=== PATIENT | female | born 1930 | race African-American/Black ===

== ENCOUNTER 2016-11-06 12:41 | Inpatient (IN) | payer OTHER ==
[~2016-11-06] VITALS: Ht 152.4 cm; Wt 70.8 kg
--- NOTE | ~2016-11-06 | EKG ---
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 : 1930 Requested By: Lv Vicente Order Number: [id number] MD: Jordon Galvan Measurements Intervals [place] Rate: 72 P: 40 [place]: 199 QRS: -15 QRSD: 98 T: 35 QT: 438 QTc: 480 Interpretive Statements Sinus rhythm LVH with secondary repolarization abnormality Baseline wander in lead(s) V1 Compared to ECG 10/28/2015 09:11:39 No significant change was found Electronically Signed On 11-07-2016 9:00:46 CDT by Jordon Galvan [email or web address] <ELECTRONICALLY SIGNED> By: Jordon Galvan MD, [facility] 11/07/16 0900 1323 1323 Jordon Galvan MD, [facility] /EPI
[~2016-11-06 12:41] MED LIST: ADULT LOW DOSE81 MG PO; AMBEREN; ARIMIDEX1 MG PO; CARVEDILOL6.25 MG PO; CLONAZEPAM0.5 MG PO; ECHINACEA HERB380 MG PO; FISH OIL 1,0001 EAC5 PO; FLOVENT DISKU100 MCG IH; HYDROCHLOROTHIA25 M2 PO; HYDROCODONE-AP1 EAC6 PO; HYDROXYZINE HCL25 M1 PO; K-TAB10 MEQ PO; KAPVAY0.1 MG PO; KLOR-CON 1010 MEQ PO; LASIX 40 MG TAB40 M1 PO; LIDODERM TP; MIRALAX17 GM PO; PAXIL40 MG PO; POTASSIUM PO; PROVENTIL; SIMVASTATIN40 MG PO; STOOL SOFTENER1 EAC2 PO; TYLENOL EX-STR500 M2 PO; VITAMIN D1000 UNI1 PO; VITCB500GO PO; WELLBUTRIN SR150 MG PO
[2016-11-06 12:45] VITALS: BP 178/76
[2016-11-06] MEDS ORDERED: TRAZODONE HCL50 MG PO (12:55)
[2016-11-06 13:23] LABS: ABSOLUTE NEUTROPHILS 2.4 thou/uL (1.4-8.2); BASOPHILS 0.5 % (0.0-2.0); EOSINOPHILS 3.9 % (0.0-3.0); HEMATOCRIT 34.7 % (37.0-47.0); HEMOGLOBIN 11.8 gm/dL (12.0-15.0); LYMPHOCYTES 17.7 % (24.0-44.0); MCH 28.2 pg (26.0-34.0); MONOCYTES 11.1 % (1.0-8.0); PLATELET COUNT 143 thou/uL (150-400); POLYS 66.8 % (36.0-66.0); RBC 4.18 mil/uL (4.20-5.00); RDW 15.2 % (10.5-14.5); WBC 3.6 thou/uL (4.0-11.0)
[2016-11-06 13:26] LABS: MANUAL DIFF NO
[2016-11-06 13:31] LABS: ANION GAP 7 mmol/L (7-16); BUN 16 mg/dL (7-18); CALCIUM 8.9 mg/dL (8.5-10.1); CHLORIDE 102 mmol/L (98-107); CO2 32 mmol/L (21-32); CREATININE 0.7 mg/dL (0.6-1.0); GLUCOSE 97 mg/dL (74-106); SODIUM 141 mmol/L (136-145)
[2016-11-06 13:38] LABS: POTASSIUM 2.4 mmol/L (3.5-5.1)
[2016-11-06 13:42] LABS: TROPONIN-I < 0.04 ng/mL (<0.04-0.07)
[2016-11-06 15:16] VITALS: BP 110/69
[2016-11-06 15:54] LABS: URINE BILIRUBIN NEGATIVE (Negative); URINE BLOOD NEGATIVE (Negative); URINE COLOR YELLOW; URINE GLUCOSE-RANDOM* NEGATIVE (Negative); URINE KETONES NEGATIVE (Negative); URINE NITRITE NEGATIVE (Negative); URINE PROTEIN (DIPSTICK) NEGATIVE (Negative); URINE UROBILINOGEN 0.2 E.U./dl (0.2-1.0)
[2016-11-06 16:15] VITALS: BP 120/54
[2016-11-06 17:25] VITALS: BP 192/89
[2016-11-06 19:20] VITALS: BP 159/69
[2016-11-07 04:05] VITALS: BP 135/62
[2016-11-07 06:27] LABS: CREATININE 0.7 mg/dL (0.6-1.0); PHOSPHORUS 3.1 mg/dL (2.5-4.9); POTASSIUM 3.2 mmol/L (3.5-5.1)
[2016-11-07 08:22] VITALS: BP 151/61
[2016-11-07] MEDS ORDERED: MAXZIDE-25 MG1 EACH PO (09:39)
[2016-11-07] MEDS ORDERED: MACROBID 100 M100 MG PO (09:49)
[2016-11-07 11:05] VITALS: BP 151/61
== END 2016-11-07 11:18 | disposition home or self-care (01) | DRG 641 ==
LOC: ER 12:41 → 4N 14:01 → EROBS 14:01 → 4N 16:18
PROVIDERS: Emergency Medicine; Hospitalist; Physician Assistant
DX: E87.6 Hypokalemia (principal); D61.818 Other pancytopenia; I10 Essential (primary) hypertension; E78.5 Hyperlipidemia, unspecified; F31.9 Bipolar disorder, unspecified; G47.9 Sleep disorder, unspecified; Z86.73 Personal history of transient ischemic attack (TIA), and cerebral infarction without residual deficits; Z88.1 Allergy status to other antibiotic agents; Z88.0 Allergy status to penicillin; Z88.6 Allergy status to analgesic agent; Z88.8 Allergy status to other drugs, medicaments and biological substances; Z79.899 Other long term (current) drug therapy
CPT/HCPCS: 10790

== ENCOUNTER 2016-11-08 06:11 | Emergency (ER) | payer OTHER ==
[~2016-11-08] VITALS: Ht 160 cm; Wt 71.7 kg
--- NOTE | ~2016-11-08 | EKG ---
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 : 1930 Requested By: Yohannes Lord Order Number: [id number] MD: Jordon Galvan Measurements Intervals [place] Rate: 75 P: -5 ND: 172 QRS: -15 QRSD: 93 T: 27 QT: 390 QTc: 436 Interpretive Statements Sinus rhythm Abnormal R-wave progression, early transition Left ventricular hypertrophy Compared to ECG 11/06/2016 13:23:17 No change was found Electronically Signed On 11-08-2016 8:11:40 CDT by Jordon Galvan [email or web address] <ELECTRONICALLY SIGNED> By: Jordon Galvan MD, [facility] 11/08/16 0811 0637 06 Jordon Galvan MD, [facility] /EPI
[~2016-11-08 06:11] MED LIST changes: +MACROBID 100 M100 MG PO; +MAXZIDE-25 MG1 EACH PO; +TRAZODONE HCL50 MG PO
[2016-11-08 06:12] VITALS: BP 190/116
[2016-11-08 06:34] LABS: ABSOLUTE NEUTROPHILS 3.5 thou/uL (1.4-8.2); BASOPHILS 0.7 % (0.0-2.0); EOSINOPHILS 2.8 % (0.0-3.0); HEMATOCRIT 36.1 % (37.0-47.0); HEMOGLOBIN 12.1 gm/dL (12.0-15.0); LYMPHOCYTES 14.6 % (24.0-44.0); MCH 28.2 pg (26.0-34.0); MCHC 33.6 g/dL (28.0-37.0); MCV 83.7 fL (80.0-100.0); MONOCYTES 11.3 % (1.0-8.0); PLATELET COUNT 143 thou/uL (150-400); POLYS 70.6 % (36.0-66.0); RBC 4.31 mil/uL (4.20-5.00); RDW 15.6 % (10.5-14.5); WBC 4.9 thou/uL (4.0-11.0)
[2016-11-08 06:35] LABS: MANUAL DIFF NO
[2016-11-08 06:43] LABS: ANION GAP 10 mmol/L (7-16); BUN 13 mg/dL (7-18); CALCIUM 9.3 mg/dL (8.5-10.1); CHLORIDE 103 mmol/L (98-107); CO2 27 mmol/L (21-32); CREATININE 0.8 mg/dL (0.6-1.0); GLUCOSE 109 mg/dL (74-106); POTASSIUM 3.4 mmol/L (3.5-5.1); SODIUM 140 mmol/L (136-145)
[2016-11-08 06:48] LABS: ALBUMIN 3.3 g/dL (3.4-5.0); ALKALINE PHOSPHATASE 101 U/L (46-116); DIRECT BILIRUBIN < 0.1 mg/dL (<0.1-0.3); SGOT 32 U/L (15-37); SGPT 29 U/L (30-65); TOTAL BILIRUBIN 0.5 mg/dL (<0.1-1.0); TOTAL PROTEIN 7.2 g/dL (6.4-8.2)
[2016-11-08 07:59] LABS: URINE BILIRUBIN NEGATIVE (Negative); URINE BLOOD NEGATIVE (Negative); URINE COLOR YELLOW; URINE GLUCOSE-RANDOM* NEGATIVE (Negative); URINE KETONES NEGATIVE (Negative); URINE LEUKOCYTES-REFLEX NEGATIVE (Negative); URINE PROTEIN (DIPSTICK) NEGATIVE (Negative); URINE UROBILINOGEN 0.2 E.U./dl (0.2-1.0)
[2016-11-08 08:34] VITALS: BP 148/73
[2016-11-08 10:46] VITALS: BP 149/80
== END 2016-11-08 09:00 | disposition home or self-care (01) ==
LOC: ER 06:11 → EROBS 08:11
PROVIDERS: Emergency Medicine
DX: R53.1 Weakness (principal); R74.8 Abnormal levels of other serum enzymes; I10 Essential (primary) hypertension; E78.00 Pure hypercholesterolemia, unspecified; F31.9 Bipolar disorder, unspecified; Z88.8 Allergy status to other drugs, medicaments and biological substances; Z86.73 Personal history of transient ischemic attack (TIA), and cerebral infarction without residual deficits; Z88.6 Allergy status to analgesic agent; Z88.1 Allergy status to other antibiotic agents; Z88.0 Allergy status to penicillin

== ENCOUNTER 2016-11-20 04:25 | Emergency (ER) | payer OTHER ==
[~2016-11-20] VITALS: Ht 152.4 cm; Wt 69.4 kg
[2016-11-20 04:26] VITALS: BP 134/77
[2016-11-20 04:51] LABS: ABSOLUTE NEUTROPHILS 2.6 thou/uL (1.4-8.2); BASOPHILS 1.1 % (0.0-2.0); EOSINOPHILS 5.1 % (0.0-3.0); HEMATOCRIT 35.3 % (37.0-47.0); HEMOGLOBIN 11.8 gm/dL (12.0-15.0); LYMPHOCYTES 22.6 % (24.0-44.0); MCH 27.8 pg (26.0-34.0); MCHC 33.5 g/dL (28.0-37.0); MCV 82.8 fL (80.0-100.0); MONOCYTES 9.2 % (1.0-8.0); PLATELET COUNT 168 thou/uL (150-400); RBC 4.26 mil/uL (4.20-5.00); RDW 14.7 % (10.5-14.5); WBC 4.3 thou/uL (4.0-11.0)
[2016-11-20 04:53] LABS: MANUAL DIFF NO
[2016-11-20 04:59] LABS: CALCIUM 9.3 mg/dL (8.5-10.1)
== END 2016-11-20 05:43 | disposition home or self-care (01) ==
LOC: ER 04:25
PROVIDERS: Emergency Medicine
DX: R25.2 Cramp and spasm (principal); I10 Essential (primary) hypertension; E78.00 Pure hypercholesterolemia, unspecified; F31.9 Bipolar disorder, unspecified; Z86.73 Personal history of transient ischemic attack (TIA), and cerebral infarction without residual deficits; Z91.030 Bee allergy status; Z88.6 Allergy status to analgesic agent; Z88.1 Allergy status to other antibiotic agents; Z88.0 Allergy status to penicillin; Z88.8 Allergy status to other drugs, medicaments and biological substances

== ENCOUNTER 2016-11-24 13:33 | Emergency (ER) | payer OTHER ==
[~2016-11-24] VITALS: Ht 152.4 cm; Wt 69.8 kg
--- NOTE | ~2016-11-24 | EKG ---
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: SHILPITAMMYSILVIO : 1930 Requested By: Miguel Nuñez Order Number: [id number] MD: Jordon Galvan Measurements Intervals [place] Rate: 75 P: 40 [place]: 181 QRS: -10 QRSD: 84 T: 28 QT: 382 QTc: 427 Interpretive Statements Sinus rhythm Abnormal R-wave progression, early transition Left ventricular hypertrophy Compared to ECG 11/08/2016 06:37:42 No significant changes Electronically Signed On 11-25-2016 13:48:05 CDT by Jordon Galvan [email or web address] <ELECTRONICALLY SIGNED> By: Jordon Galvan MD, [facility] 11/25/16 1348 1448 1448 Jordon Galvan MD, [facility] /EPI
[2016-11-24 15:06] LABS: HEMATOCRIT 33.7 % (37.0-47.0); HEMOGLOBIN 11.3 gm/dL (12.0-15.0); MCH 27.8 pg (26.0-34.0); MCHC 33.6 g/dL (28.0-37.0); MCV 82.9 fL (80.0-100.0); PLATELET COUNT 148 thou/uL (150-400); RBC 4.06 mil/uL (4.20-5.00); RDW 15.2 % (10.5-14.5); WBC 8.8 thou/uL (4.0-11.0)
[2016-11-24 15:07] LABS: MANUAL DIFF YES
[2016-11-24 15:21] LABS: ANION GAP 8 mmol/L (7-16); BUN 23 mg/dL (7-18); CALCIUM 9.7 mg/dL (8.5-10.1); CHLORIDE 104 mmol/L (98-107); CO2 24 mmol/L (21-32); CREATININE 1.2 mg/dL (0.6-1.0); GLUCOSE 97 mg/dL (74-106); POTASSIUM 4.3 mmol/L (3.5-5.1); SODIUM 136 mmol/L (136-145)
[2016-11-24 15:30] LABS: TROPONIN-I < 0.04 ng/mL (<0.04-0.07)
[2016-11-24 15:44] LABS: ABSOLUTE NEUTROPHILS 5.5 thou/uL (1.4-8.2); TOTAL CELL COUNT 100
[2016-11-24 16:44] VITALS: BP 126/94
== END 2016-11-24 16:46 | disposition home or self-care (01) ==
LOC: ER 13:33
PROVIDERS: Emergency Medicine
DX: R09.89 Other specified symptoms and signs involving the circulatory and respiratory systems (principal); I10 Essential (primary) hypertension; E78.00 Pure hypercholesterolemia, unspecified; F31.9 Bipolar disorder, unspecified; Z86.73 Personal history of transient ischemic attack (TIA), and cerebral infarction without residual deficits; Z88.1 Allergy status to other antibiotic agents; Z88.0 Allergy status to penicillin; Z88.6 Allergy status to analgesic agent; Z91.030 Bee allergy status; Z98.890 Other specified postprocedural states

== ENCOUNTER 2016-11-25 07:26 | Emergency (ER) | payer OTHER ==
[~2016-11-25] VITALS: Ht 152.4 cm; Wt 68.0 kg
--- NOTE | ~2016-11-25 | EKG ---
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
[2016-11-25 07:55] LABS: HEMATOCRIT 34.8 % (37.0-47.0); HEMOGLOBIN 11.7 gm/dL (12.0-15.0); MCHC 33.6 g/dL (28.0-37.0); MCV 83.4 fL (80.0-100.0); RBC 4.18 mil/uL (4.20-5.00); RDW 15.4 % (10.5-14.5); WBC 3.4 thou/uL (4.0-11.0)
[2016-11-25 08:04] LABS: CALCIUM 9.6 mg/dL (8.5-10.1); CREATININE 1.1 mg/dL (0.6-1.0); POTASSIUM 3.9 mmol/L (3.5-5.1)
[2016-11-25 09:41] LABS: URINE BILIRUBIN NEGATIVE (Negative); URINE BLOOD NEGATIVE (Negative); URINE COLOR YELLOW; URINE GLUCOSE-RANDOM* NEGATIVE (Negative); URINE KETONES NEGATIVE (Negative); URINE LEUKOCYTES-REFLEX NEGATIVE (Negative); URINE PROTEIN (DIPSTICK) NEGATIVE (Negative); URINE UROBILINOGEN 0.2 E.U./dl (0.2-1.0)
[2016-11-25 10:26] VITALS: BP 134/60
== END 2016-11-25 10:28 | disposition home or self-care (01) ==
LOC: ER 07:26
PROVIDERS: Emergency Medicine
DX: I10 Essential (primary) hypertension (principal); E78.00 Pure hypercholesterolemia, unspecified; F31.9 Bipolar disorder, unspecified; Z86.73 Personal history of transient ischemic attack (TIA), and cerebral infarction without residual deficits; Z88.8 Allergy status to other drugs, medicaments and biological substances; Z88.1 Allergy status to other antibiotic agents; Z88.0 Allergy status to penicillin; Z91.030 Bee allergy status

== ENCOUNTER 2016-12-31 05:38 | Emergency (ER) | payer OTHER ==
[~2016-12-31] VITALS: Ht 152.4 cm; Wt 69.8 kg
[2016-12-31] MEDS ORDERED: POTASSIUM20 PO (05:49)
[2016-12-31 06:43] LABS: HEMATOCRIT 33.1 % (37.0-47.0); HEMOGLOBIN 11.4 gm/dL (12.0-15.0); MCH 28.3 pg (26.0-34.0); MCHC 34.4 g/dL (28.0-37.0); MCV 82.3 fL (80.0-100.0); PLATELET COUNT 140 thou/uL (150-400); RBC 4.02 mil/uL (4.20-5.00); RDW 15.8 % (10.5-14.5); WBC 3.3 thou/uL (4.0-11.0)
[2016-12-31 06:46] LABS: MANUAL DIFF YES
[2016-12-31 06:51] LABS: CALCIUM 9.1 mg/dL (8.5-10.1); CREATININE 0.7 mg/dL (0.6-1.0); POTASSIUM 3.1 mmol/L (3.5-5.1)
[2016-12-31 07:05] VITALS: BP 178/92
[2016-12-31 08:06] LABS: ATYPICAL LYMPHS 1 %; TOTAL CELL COUNT 100
== END 2016-12-31 07:16 | disposition home or self-care (01) ==
LOC: ER 05:38
PROVIDERS: Emergency Medicine
DX: R25.2 Cramp and spasm (principal); E87.6 Hypokalemia; I10 Essential (primary) hypertension; E78.00 Pure hypercholesterolemia, unspecified; F31.9 Bipolar disorder, unspecified; Z86.73 Personal history of transient ischemic attack (TIA), and cerebral infarction without residual deficits; Z88.0 Allergy status to penicillin; Z88.1 Allergy status to other antibiotic agents; Z91.030 Bee allergy status; Z88.6 Allergy status to analgesic agent; Z88.8 Allergy status to other drugs, medicaments and biological substances